=== PATIENT | male | born 1950 | race Caucasian/White ===

== ENCOUNTER 2019-07-20 16:38 | Emergency (ER) | payer OTHER ==
[2019-07-20] MEDS ORDERED: LIDOCAINE 1% MPF 5 ML VIAL ONE (17:09)
[2019-07-20] MEDS ORDERED: BUPIVACAINE 0.5% PF 10 ML VIAL ONE (17:09)
--- NOTE | 2019-07-20 17:41 | RAD REPORT ---
EXAM DESCRIPTION: RAD - Foot Left 3 View - 07/20/2019 5:16 pm CLINICAL HISTORY: Left Foot pain FINDINGS: No fracture or dislocation is seen.
--- NOTE | 2019-07-20 17:48 | ER ---
Nurse's Notes [facility] Name: Billy Nelson Age: 69 yrs Sex: Male : 1950 Arrival Date: 07/20/2019 Time: 16:41 Bed 13 Private MD: Diagnosis: Subungual hematoma left great toe;Contusion of left great toe without damage to nail Presentation: 07/20 16:55 Presenting complaint: Patient states: four days ago dropped flag maker on toe, pain. ch today stubbed it on a couch, and states its worse. Transition of care: patient was not received from another setting of care. Onset of symptoms was July 15, 2019. Risk Assessment: Do you want to hurt yourself or someone else? Patient reports no desire to harm self or others. Initial Sepsis Screen: Does the patient meet any 2 criteria? No. Patient's initial sepsis screen is negative. Does the patient have a suspected source of infection? No. Patient's initial sepsis screen is negative. Care prior to arrival: None. 16:55 Method Of Arrival: Ambulatory 16:55 Acuity: SELVIN 3 Triage Assessment: 17:24 General: Appears in no apparent distress. comfortable, Behavior is calm, cooperative, ch appropriate for age. Pain: Complains of pain in left first toe Pain currently is 8 out of 10 on a pain scale. Neuro: No deficits noted. Respiratory: Airway is patent Respiratory effort is even, unlabored, Breath sounds are clear bilaterally. Derm: Skin is pink, warm \T\ dry. Musculoskeletal: Circulation, motion, and sensation intact. Capillary refill < 3 seconds, in bilateral fingers. toes. pthas blackened nail, swollen end of pt toe. Historical: - Allergies: 17:24 gingen rachel; ch - Home Meds: 17:24 Invokana 100 mg oral tab 1 tab once daily [Active]; glimepiride 1 mg Oral tab 1 tab ch once daily [Active]; Prevacid Oral [Active]; metformin 500 mg Oral tab 1 tab 2 times per day [Active]; olmesartan oral oral 1 tab once daily [Active]; Victoza 2-Jt 0.6 mg/0.1 mL (18 mg/3 mL) subcutaneous pnij 0.2 mL once daily [Active]; ProAir HFA 90 mcg/actuation inhalation HFAA 1 puff [Active]; - PMHx: 17:24 Diabetes - NIDDM; Asthma; ch - PSHx: 17:24 bunion; Tonsillectomy; ch - Immunization history:: Adult Immunizations up to date, Last tetanus immunization: unknown. - Social history:: Smoking status: Patient/guardian denies using tobacco, Patient/guardian denies using alcohol, street drugs. - Ebola Screening: : Patient negative for fever greater than or equal to 101.5 degrees Fahrenheit, and additional compatible Ebola Virus Disease symptoms Patient denies exposure to infectious person Patient denies travel to an Ebola-affected area in the 21 days before illness onset No symptoms or risks identified at this time. Screenin:28 Abuse screen: Denies threats or abuse. Denies injuries from another. Nutritional ch screening: No deficits noted. Tuberculosis screening: No symptoms or risk factors identified. Fall Risk None identified. Assessment: 17:28 General: Appears in no apparent distress. comfortable, Behavior is calm, cooperative, ch appropriate for age. 18:01 Reassessment: Patient appears in no apparent distress at this time. Patient and/or ch family updated on plan of care and expected duration. Pain level reassessed. Patient is alert, oriented x 3, equal unlabored respirations, skin warm/dry/pink. Patient denies pain at this time. Vital Signs: 17:24 BP 134 / 83; Pulse 96; Resp 16; Temp 99; Pulse Ox 97% on R/A; Weight 95.25 kg; Height 5 ch ft. 9 in. (175.26 cm); Pain 8/10; 18:01 BP 120 / 76; Pulse 88; Resp 14; Temp 98.8; Pulse Ox 99% on R/A; Pain 0/10; ch 17:24 Body Mass Index 31.01 (95.25 kg, 175.26 cm) ED Course: 16:41 Patient arrived in ED. as 16:44 Erum Daniels [facility]-C [facility]. kb 16:44 Shan Daniel MD is Attending Physician. kb 16:47 Marily Nolan RN is Primary Nurse. ch 16:55 Arm band placed on left wrist. Patient placed in an exam room, on a stretcher. ch 16:57 Triage completed. ch 17:22 Foot Left 3 View XRAY In Process Unspecified. EDMS 17:28 Patient has correct armband on for positive identification. Bed in low position. Call light in reach. Side rails up X 1. 17:28 No provider procedures requiring assistance completed. 18:01 Patient did not have IV access during this emergency room visit. Wound care: to contusion to great toe located on left first toe was cleaned with Hibiclens, Patient tolerated well. wound dressed with bandaid. Administered Medications: 18:01 Not Given (pt states he will get it from his pharmacy): Tetanus-Diphtheria Toxoid Adult ch 0.5 ml IM once 18:01 Not Given (Patient Refused): KeFLEX 500 mg PO once Outcome: 17:46 Discharge ordered by . melonie 18:01 Discharged to home ambulatory. 18:01 Condition: improved 18:01 Discharge instructions given to patient, Instructed on discharge instructions, follow up and referral plans. medication usage, Demonstrated understanding of instructions, follow-up care, medications. 18:04 Patient left the ED. Signatures: Dispatcher [employer] [facility] Erum Daniels, WEB SITE PROJECT MANAGER-Luis VARELA-Marily Jarrell, RN RN Mya Medina as
--- NOTE | 2019-07-20 17:48 | EDPHYS ---
Physician Documentation [facility] Name: Billy Nelson Age: 69 yrs Sex: Male : 1950 Arrival Date: 07/20/2019 Time: 16:41 Bed 13 Private MD: ED Physician Shan Daniel HPI: 07/20 16:52 This 69 yrs old Male presents to ER via Unassigned with complaints of Toe kb Injury. 16:53 The patient presents with an injury, a laceration, pain, that is acute, swelling, kb tenderness. The complaints affect the left foot. Context: the patient can fully bear weight. Onset: The symptoms/episode began/occurred 4 day(s) ago. Modifying factors: The symptoms are alleviated by nothing, the symptoms are aggravated by nothing. Associated signs and symptoms: Pertinent positives: swelling. Severity of symptoms: At their worst the symptoms were moderate, in the emergency department the symptoms are unchanged. The patient has not experienced similar symptoms in the past. The patient has not recently seen a physician. Pt reports he dropped a greeting card maker on left great toe 4 days ago. States he figured he would lose his nail because it became black beneath the nail. Today he stubbed his toe and it started bleeding just proximal to the nail.. Historical: - Allergies: 17:24 gingen rachel; ch - Home Meds: 17:24 Invokana 100 mg oral tab 1 tab once daily [Active]; glimepiride 1 mg Oral tab 1 tab ch once daily [Active]; Prevacid Oral [Active]; metformin 500 mg Oral tab 1 tab 2 times per day [Active]; olmesartan oral oral 1 tab once daily [Active]; Victoza 2-Jt 0.6 mg/0.1 mL (18 mg/3 mL) subcutaneous pnij 0.2 mL once daily [Active]; ProAir HFA 90 mcg/actuation inhalation HFAA 1 puff [Active]; - PMHx: 17:24 Diabetes - NIDDM; Asthma; ch - PSHx: 17:24 bunion; Tonsillectomy; ch - Immunization history:: Adult Immunizations up to date, Last tetanus immunization: unknown. - Social history:: Smoking status: Patient/guardian denies using tobacco, Patient/guardian denies using alcohol, street drugs. - Ebola Screening: : Patient negative for fever greater than or equal to 101.5 degrees Fahrenheit, and additional compatible Ebola Virus Disease symptoms Patient denies exposure to infectious person Patient denies travel to an Ebola-affected area in the 21 days before illness onset No symptoms or risks identified at this time. ROS: 16:50 Constitutional: Negative for fever, chills, and weight loss, Cardiovascular: Negative kb for chest pain, palpitations, and edema, Respiratory: Negative for shortness of breath, cough, wheezing, and pleuritic chest pain, Abdomen/GI: Negative for abdominal pain, nausea, vomiting, diarrhea, and constipation, Back: Negative for injury and pain, Neuro: Negative for headache, weakness, numbness, tingling, and seizure. 16:50 MS/extremity: Positive for injury or acute deformity, ecchymosis, laceration, pain, swelling, tenderness. Exam: 16:50 Constitutional: This is a well developed, well nourished patient who is awake, alert, kb and in no acute distress. Head/Face: Normocephalic, atraumatic. Neck: Trachea midline, no thyromegaly or masses palpated, and no cervical lymphadenopathy. Supple, full range of motion without nuchal rigidity, or vertebral point tenderness. No Meningismus. Chest/axilla: Normal chest wall appearance and motion. Nontender with no deformity. No lesions are appreciated. Cardiovascular: Regular rate and rhythm with a normal S1 and S2. No gallops, murmurs, or rubs. Normal PMI, no JVD. No pulse deficits. Respiratory: Lungs have equal breath sounds bilaterally, clear to auscultation and percussion. No rales, rhonchi or wheezes noted. No increased work of breathing, no retractions or nasal flaring. Abdomen/GI: Soft, non-tender, with normal bowel sounds. No distension or tympany. No guarding or rebound. No evidence of tenderness throughout. Neuro: Awake and alert, GCS 15, oriented to person, place, time, and situation. Cranial nerves II-XII grossly intact. Motor strength 5/5 in all extremities. Sensory grossly intact. Cerebellar exam normal. Normal gait. 16:50 Musculoskeletal/extremity: Extremities: grossly normal except: noted in the left first toe: ecchymosis, pain, swelling, tenderness, ROM: no acute changes, Circulation is intact in all extremities. Sensation intact. Weight bearing: able to fully bear weight, Nails: Subungual hematoma, of the left first toe. Vital Signs: 17:24 BP 134 / 83; Pulse 96; Resp 16; Temp 99; Pulse Ox 97% on R/A; Weight 95.25 kg; Height 5 ch ft. 9 in. (175.26 cm); Pain 8/10; 18:01 BP 120 / 76; Pulse 88; Resp 14; Temp 98.8; Pulse Ox 99% on R/A; Pain 0/10; ch 17:24 Body Mass Index 31.01 (95.25 kg, 175.26 cm) ch MDM: 16:48 Patient medically screened. kb 16:50 Data reviewed: vital signs, nurses notes. Data interpreted: Pulse oximetry: on room air kb is 100 %. Interpretation: normal. 17:44 Counseling: I had a detailed discussion with the patient and/or guardian regarding: the kb historical points, exam findings, and any diagnostic results supporting the discharge/admit diagnosis, radiology results, the need for outpatient follow up, a family practitioner, to return to the emergency department if symptoms worsen or persist or if there are any questions or concerns that arise at home. 07/20 16:50 Order name: Foot Left 3 View XRAY; Complete Time: 17:59 kb Administered Medications: 18:01 Not Given (pt states he will get it from his pharmacy): Tetanus-Diphtheria Toxoid Adult ch 0.5 ml IM once 18:01 Not Given (Patient Refused): KeFLEX 500 mg PO once ch Disposition: 07/21 07:28 Co-signature as Attending Physician, Shan Daniel MD I agree with the assessment and kdr plan of care. Disposition: 07/20/19 17:46 Discharged to Home. Impression: Subungual hematoma left great toe, Contusion of left great toe without damage to nail. - Condition is Stable. - Discharge Instructions: Foot Contusion, [id number], Subungual Hematoma, [id number]. - Medication Reconciliation Form, Thank You Letter, Antibiotic Education, Prescription Opioid Use form. - Follow up: Emergency Department; When: As needed; Reason: Worsening of condition. Follow up: Private Physician; When: 2 - 3 days; Reason: Recheck today's complaints, Continuance of care, Re-evaluation by your physician. Signatures: Dispatcher [employer] [facility] Erum Daniels, SHOVEL MECHANIC-C SHOVEL MECHANIC-Marily Jarrell, RN RN Shan Daniel MD MD [facility] Corrections: (The following items were deleted from the chart) 07/20 16:52 16:50 Musculoskeletal/extremity: Extremities: grossly normal except: noted in the left kb first toe: ecchymosis, pain, swelling, tenderness, ROM: no acute changes, Circulation is intact in all extremities. Sensation intact. Weight bearing: able to fully bear weight, 18:04 17:46 07/20/2019 17:46 Discharged to Home. Impression: Subungual hematoma left great ch toe; Contusion of left great toe without damage to nail. Condition is Stable. Forms are Medication Reconciliation Form, Thank You Letter, Antibiotic Education, Prescription Opioid Use. Follow up: Emergency Department; When: As needed; Reason: Worsening of condition. Follow up: Private Physician; When: 2 - 3 days; Reason: Recheck today's complaints, Continuance of care, Re-evaluation by your physician. kb
[2019-07-20 18:11] VITALS: BP 120/76; TEMP 98.8; O2SAT 99
== END 2019-07-20 18:04 | disposition home or self-care (01) ==
LOC: ER 16:38
DX: S90.212A Contusion of left great toe with damage to nail, initial encounter (principal); W22.8XXA Striking against or struck by other objects, initial encounter; Y93.9 Activity, unspecified; Y92.009 Unspecified place in unspecified non-institutional (private) residence as the place of occurrence of the external cause; Z91.018 Allergy to other foods; E11.9 Type 2 diabetes mellitus without complications; J45.909 Unspecified asthma, uncomplicated
CPT/HCPCS: 99283